=== PATIENT | female | born 1950 | race Caucasian/White ===

== ENCOUNTER 2019-11-22 09:20 | Outpatient (CLI) | payer OTHER | END 2019-11-22 09:30 | disposition home or self-care (01) | LOC: SONOGRAMA 09:20 | DX: K76.0 Fatty (change of) liver, not elsewhere classified (principal) ==

== ENCOUNTER 2022-06-02 08:19 | Outpatient (CLI) | payer OTHER | END 2022-06-02 08:22 | disposition home or self-care (01) | LOC: NUCLEAR 08:19 | PROVIDERS: ATTEND Internal Medicine Hematology & Oncology | DX: I74.2 Embolism and thrombosis of arteries of the upper extremities (principal) ==

== ENCOUNTER 2022-06-03 07:56 | Outpatient (CLI) | payer OTHER | END 2022-06-03 07:59 | disposition home or self-care (01) | LOC: NUCLEAR 07:56 | PROVIDERS: ATTEND Internal Medicine Hematology & Oncology | DX: I74.2 Embolism and thrombosis of arteries of the upper extremities (principal) ==

== ENCOUNTER → 2022-12-13 | Outpatient (CLI) | payer OTHER | END | disposition home or self-care (01) | LOC: RAD 09:51 | PROVIDERS: ATTEND Orthopaedic Surgery | DX: Z01.818 Encounter for other preprocedural examination (principal); S83.242A Other tear of medial meniscus, current injury, left knee, initial encounter; R07.9 Chest pain, unspecified ==

== ENCOUNTER 2024-09-19 13:44 | Outpatient (CLI) | payer OTHER | END 2024-09-19 13:51 | disposition home or self-care (01) | LOC: RAD 13:44 | PROVIDERS: ATTEND Family Medicine | DX: R05.9 Cough, unspecified (principal) ==

== ENCOUNTER → 2024-10-11 | Outpatient (CLI) | payer OTHER | END | disposition home or self-care (01) | LOC: SONOGRAMA 11:43 | DX: I72.1 Aneurysm of artery of upper extremity (principal) ==

== ENCOUNTER 2025-02-27 11:54 | Outpatient (CLI) | payer OTHER | END 2025-02-27 11:56 | disposition home or self-care (01) | LOC: RAD 11:54 | PROVIDERS: ATTEND Physical Medicine & Rehabilitation | DX: M54.6 Pain in thoracic spine (principal) ==

== ENCOUNTER 2025-03-18 08:33 | Outpatient (CLI) | payer OTHER | END 2025-03-18 08:36 | disposition home or self-care (01) | LOC: SONOGRAMA 08:33 | PROVIDERS: ATTEND Family Medicine | DX: R10.10 Upper abdominal pain, unspecified (principal) ==

== ENCOUNTER 2025-04-09 10:54 | Outpatient (CLI) | payer OTHER ==
[2025-04-09 11:48] LABS: CREATININE SERUM 0.72 mg/dL (0.55-1.02)
== END 2025-04-09 10:56 | disposition home or self-care (01) ==
LOC: LAB 10:54
PROVIDERS: ATTEND Radiology Diagnostic Radiology
DX: R93.3 Abnormal findings on diagnostic imaging of other parts of digestive tract (principal); R94.5 Abnormal results of liver function studies; K21.00 Gastro-esophageal reflux disease with esophagitis, without bleeding

== ENCOUNTER 2025-04-11 08:19 | Outpatient (CLI) | payer OTHER | END 2025-04-11 08:27 | disposition home or self-care (01) | LOC: TOM 08:19 | PROVIDERS: ATTEND Internal Medicine Hepatology | DX: R93.3 Abnormal findings on diagnostic imaging of other parts of digestive tract (principal); R94.5 Abnormal results of liver function studies; K21.00 Gastro-esophageal reflux disease with esophagitis, without bleeding | CPT/HCPCS: 74160; Q9965 ==